=== PATIENT | female | born 1990 | race Caucasian/White ===

== ENCOUNTER 2017-08-14 14:43 | Outpatient (CLI) | payer MEDICAID ==
[~2017-08-14] VITALS: Ht 157.5 cm; Wt 77.3 kg
[2017-08-14 15:15] VITALS: BP 143/71
[2017-08-14] MEDS ORDERED: ACETAMINOPHEN 325 MG TABLET PO ONE (16:00)
[2017-08-14] MEDS ORDERED: LACTATED RINGERS 1,000 ML IVBOLUS ONE (16:00)
[2017-08-14 16:07] LABS: HEMATOCRIT 37.1 % (34.6-47.8); HEMOGLOBIN 12.5 g/dL (11.7-16.4); WHITE BLOOD COUNT 16.4 x10^3/uL (3.4-10)
[2017-08-14 16:13] LABS: DAU SCREEN DISCLAIMER
[2017-08-14 16:19] LABS: ASPARTATE AMINO TRANSFERASE 12 U/L (15-37); BLOOD UREA NITROGEN 4 mg/dL (7-18)
[2017-08-14] MEDS ORDERED: ACETAMINOPHEN 325 MG TABLET ONE (16:50)
[2017-08-14 17:01] LABS: HIV 1&2 ANTIBODY SCREEN Nonreactive (Nonreactive); HIV-1 p24 ANTIGEN Nonreactive (Nonreactive)
[2017-08-14] MEDS ORDERED: FLU VACC QS2017-18 (36MOS+) UP/PF 0.5 ML IM-VACC ONE (17:30)
== END 2017-08-14 19:05 | disposition home or self-care (01) ==
LOC: LDOP 14:43
PROVIDERS: ATTEND Obstetrics & Gynecology
DX: O26.893 Other specified pregnancy related conditions, third trimester (principal); M54.5 Low back pain; R09.81 Nasal congestion; R03.0 Elevated blood-pressure reading, without diagnosis of hypertension; Z3A.38 38 weeks gestation of pregnancy
CPT/HCPCS: 36415; 59025; 76805; 80053; 80307; 81001; 85025; 86140; 86592; 86703; 86762; 86850; 86900; 87077; 87081; 87086; 87186; 87340; 87899; 90686; 96360; 96361; 96372; 99211; J7120; G0435; G0463; G0479

== ENCOUNTER 2017-08-25 03:15 | Outpatient (CLI) | payer MEDICAID ==
[~2017-08-25] VITALS: Ht 152.4 cm; Wt 80.4 kg
[2017-08-25 03:20] VITALS: BP 129/75
[2017-08-25 03:38] LABS: DAU SCREEN DISCLAIMER
== END 2017-08-25 04:15 | disposition home or self-care (01) ==
LOC: LDOP 03:15
PROVIDERS: ATTEND Obstetrics & Gynecology Gynecology
DX: O26.893 Other specified pregnancy related conditions, third trimester (principal); O62.9 Abnormality of forces of labor, unspecified; R10.9 Unspecified abdominal pain; Z3A.39 39 weeks gestation of pregnancy
CPT/HCPCS: 59025; 80307; 81001; 87077; 87086; 87186; 99211; G0463; G0479

== ENCOUNTER 2017-09-05 16:44 | Outpatient (CLI) | payer MEDICAID ==
[~2017-09-05] VITALS: Ht 154.9 cm; Wt 79.5 kg
[2017-09-05 16:57] VITALS: BP 143/83
[2017-09-05 18:08] LABS: MICROSCOPIC INDICATED
[2017-09-05 19:44] LABS: AMPHETAMINE SCREEN, URINE Negative (Negative); BARBITURATE SCREEN, URINE Negative (Negative); BENZODIAZEPINE SCREEN, URINE Negative (Negative); CANNABINOID SCREEN, URINE Positive (Negative); COCAINE SCREEN, URINE Negative (Negative); METHADONE SCREEN, URINE Negative (Negative); OPIATE SCREEN, URINE Negative (Negative)
== END 2017-09-05 19:03 | disposition home or self-care (01) ==
LOC: LDOP 16:44
PROVIDERS: ATTEND Obstetrics & Gynecology
DX: O26.893 Other specified pregnancy related conditions, third trimester (principal); R10.9 Unspecified abdominal pain; O48.0 Post-term pregnancy; Z3A.41 41 weeks gestation of pregnancy
CPT/HCPCS: 36415; 59025; 80307; 81001; 86850; 86900; 99211; G0463; G0479

== ENCOUNTER 2017-09-09 17:22 | Inpatient (IN) | payer MEDICAID ==
[~2017-09-09] VITALS: Ht 152.4 cm; Wt 81.8 kg
[2017-09-09 17:32] VITALS: BP 120/69
[2017-09-09 17:44] VITALS: BP 120/69
[2017-09-09 17:57] VITALS: BP 120/69
[2017-09-09 18:24] LABS: CULTURE INDICATED? YES; MICROSCOPIC INDICATED
[2017-09-09 19:03] LABS: AMPHETAMINE SCREEN, URINE Negative (Negative); BARBITURATE SCREEN, URINE Negative (Negative); BENZODIAZEPINE SCREEN, URINE Negative (Negative); CANNABINOID SCREEN, URINE Positive (Negative); COCAINE SCREEN, URINE Negative (Negative); METHADONE SCREEN, URINE Negative (Negative); OPIATE SCREEN, URINE Negative (Negative)
[2017-09-09] MEDS ORDERED: OXYTOCIN 30U/ 0.9% NaCL 500ML 500 ML IV PRN (19:17)
[2017-09-09] MEDS ORDERED: OXYTOCIN 30U/ 0.9% NaCL 500ML 500 ML IV ONE (19:17)
[2017-09-09] MEDS: D5%-LACTATED RINGERS 1,000 ML IV SCH (19:17)
[2017-09-09] MEDS ORDERED: TERBUTALINE 1 MG/ML, 1ML SQ PRN (19:30)
[2017-09-09] MEDS ORDERED: FENTANYL PF 100 MCG/2ML IV PRN (19:30)
[2017-09-09] MEDS ORDERED: ALUMINUM/MAG/SIMETHICONE 30 ML UDC PO PRN (19:30)
[2017-09-09] MEDS ORDERED: ONDANSETRON 2MG/ML, 2ML IVPush PRN (19:30)
[2017-09-09] MEDS ORDERED: METOCLOPRAMIDE 5 MG/ML, 2ML IVPush PRN (19:30)
[2017-09-09] MEDS ORDERED: CALCIUM CARBONATE 500 MG TAB.CHEW PO PRN (19:30)
[2017-09-09] MEDS ORDERED: TERBUTALINE 1 MG/ML, 1ML IVPush PRN (19:30)
[2017-09-09] MEDS ORDERED: FENTANYL PF 100 MCG/2ML IVPush PRN (19:30)
[2017-09-09] MEDS ORDERED: SODIUM CITRATE/CITRIC ACID 30 ML UDC PO PRN (19:30)
[2017-09-09 19:35] LABS: BASOPHILS # (AUTO) 0.02 x10^3/uL (0-0.1); BASOPHILS % (AUTO) 0 % (0-1); EOSINOPHILS # (AUTO) 0.22 x10^3/uL (0-0.4); EOSINOPHILS % (AUTO) 2 % (1-7); LYMPHOCYTES # (AUTO) 2.33 x10^3/uL (1-3.4); LYMPHOCYTES % (AUTO) 19 % (22-44); MD NO; MEAN CORPUSCULAR HEMOGLOBIN 30.3 pg (27.0-34.8); MEAN CORPUSCULAR HGB CONC 33.7 g/dL (32.4-35.8); MEAN CORPUSCULAR VOLUME 89.9 fL (80-100); MEAN PLATELET VOLUME 10.1 fL (7.4-10.4); MONOCYTES % (AUTO) 8 % (2-9); NEUTROPHILS # (AUTO) 8.62 x10^3/uL (1.8-6.8); NEUTROPHILS % (AUTO) 71 % (42-75); PLATELET COUNT 207 x10^3/uL (130-400)
[2017-09-09 20:14] LABS: HEMOGLOBIN A1C 5.1 % (4.2-6.3)
[2017-09-09] MEDS ORDERED: LIDOCAINE-MPF 2% ,5ML ONE ×2 (20:51→20:53)
[2017-09-09] MEDS ORDERED: FENTANYL/BUPIV./NS/PF 250 ML EPIDCONT ONE ×2 (20:51→20:53)
[2017-09-09] MEDS: LACTATED RINGERS 1,000 ML IV SCH ×2 (21:24→23:58)
[2017-09-09] MEDS ORDERED: FENTANYL/BUPIV./NS/PF 250 ML EPIDCONT SCH (21:24)
[2017-09-09] MEDS ORDERED: EPHEDRINE 50 MG/ML, 1ML IVPush PRN (21:30)
[2017-09-09] MEDS ORDERED: NALOXONE 0.4 MG/ML, 1ML IVPush PRN (21:30)
[2017-09-09] MEDS ORDERED: LACTATED RINGERS 1,000 ML IVBOLUS PRN (21:30)
[2017-09-10] MEDS: LACTATED RINGERS 1,000 ML IV SCH ×5 (03:17→18:19)
[2017-09-10] MEDS: D5%-LACTATED RINGERS 1,000 ML IV SCH ×2 (03:17→11:17)
[2017-09-10] MEDS ORDERED: TERBUTALINE 1 MG/ML, 1ML ONE (07:18)
[2017-09-10] MEDS ORDERED: CEFAZOLIN 1,000 MG ONE (07:22)
[2017-09-10] MEDS ORDERED: SUCCINYLCHOLINE 20 MG/ML, 10ML ONE (07:22)
[2017-09-10] MEDS ORDERED: EPHEDRINE 50 MG/ML, 1ML ONE (07:22)
[2017-09-10] MEDS ORDERED: PROPOFOL 10 MG/ML, 20ML ONE (07:22)
[2017-09-10] MEDS ORDERED: PHENYLEPHRINE 10 MG/ML ONE (07:22)
[2017-09-10] MEDS ORDERED: METOCLOPRAMIDE 5 MG/ML, 2ML ONE (07:22)
[2017-09-10] MEDS: OXYTOCIN 30U/ 0.9% NaCL 500ML 500 ML IV SCH ×2 (08:19→18:19)
[2017-09-10] MEDS ORDERED: LACTATED RINGERS 1,000 ML IV SCH (08:19)
[2017-09-10] MEDS ORDERED: FENTANYL PF 100 MCG/2ML IV PRN (08:30)
[2017-09-10] MEDS ORDERED: hydrALAzine 20 MG/ML, 1ML IV PRN (08:30)
[2017-09-10] MEDS ORDERED: HYDROcodone/APAP 7.5-325MG/15ML UDC PO PRN (08:30)
[2017-09-10] MEDS ORDERED: CALCIUM CARBONATE 500 MG TAB.CHEW PO PRN (08:30)
[2017-09-10] MEDS ORDERED: MIDAZOLAM 1 MG/ML, 2ML IV PRN (08:30)
[2017-09-10] MEDS ORDERED: OXYcodone 5 MG/5 ML ORAL.SOL UDC PO PRN (08:30)
[2017-09-10] MEDS ORDERED: MEPERIDINE/PF 25MG/0.5ML IVPush PRN (08:30)
[2017-09-10] MEDS ORDERED: SIMETHICONE 80 MG CHEW TAB PO PRN (08:30)
[2017-09-10] MEDS ORDERED: EPHEDRINE 50 MG/ML, 1ML IVPush PRN (08:30)
[2017-09-10] MEDS ORDERED: MISOPROSTOL 200 MCG TABLET PR PRN (08:30)
[2017-09-10] MEDS ORDERED: morphine SULFATE 10 MG/ML, 1ML IVPush PRN ×2 (08:30)
[2017-09-10] MEDS ORDERED: OXYcodone IR 5MG TABLET PO PRN (08:30)
[2017-09-10] MEDS ORDERED: BISACODYL 10 MG SUPP PR PRN (08:30)
[2017-09-10] MEDS ORDERED: METHYLERGONOVINE 0.2 MG/ML IM PRN (08:30)
[2017-09-10] MEDS ORDERED: ONDANSETRON 2MG/ML, 2ML IVPush PRN (08:30)
[2017-09-10] MEDS ORDERED: PROMETHAZINE 25 MG/ML, 1ML IV PRN (08:30)
[2017-09-10] MEDS ORDERED: HYDROmorphone 1 MG/ML, 1ML IV PRN (08:30)
[2017-09-10] MEDS ORDERED: ONDANSETRON 2MG/ML, 2ML IV PRN (08:30)
[2017-09-10] MEDS ORDERED: LABETALOL 5MG/ML, 20ML IV PRN (08:30)
[2017-09-10] MEDS: PRENATAL VIT/IRON/FA 1 EACH TABLET PO SCH (09:00)
[2017-09-10] MEDS ORDERED: MISOPROSTOL 200 MCG TABLET ONE (09:49)
[2017-09-10 10:50] VITALS: BP 137/80
[2017-09-10] MEDS: KETOROLAC 30 MG/1 ML IV SCH ×2 (13:13→19:21)
[2017-09-10] MEDS: ACETAMINOPHEN 325 MG TABLET PO SCH ×2 (13:13→19:21)
[2017-09-10] MEDS: OXYcodone IR 5MG TABLET PO PRN ×2 (14:50→19:04)
[2017-09-10 15:00] VITALS: BP 133/84
[2017-09-10 16:06] LABS: MEAN CORPUSCULAR HEMOGLOBIN 30.6 pg (27.0-34.8); MEAN CORPUSCULAR HGB CONC 34.1 g/dL (32.4-35.8); MEAN CORPUSCULAR VOLUME 89.7 fL (80-100); MEAN PLATELET VOLUME 10.1 fL (7.4-10.4); PLATELET COUNT 184 x10^3/uL (130-400); RED BLOOD COUNT 3.78 x10^6/uL (3.82-5.3); RED CELL DISTRIBUTION WIDTH 13.4 % (9.6-15.2)
[2017-09-10 16:07] LABS: MD YES
[2017-09-10 16:39] LABS: <PLATELET ESTIMATE> ADEQUATE; <PLT MORPHOLOGY> NORMAL PLT MORPH; <RBC MORPHOLOGY> NORMAL; BANDS%(MANUAL) 4 % (0-7); LYMPHS% (MANUAL) 8 % (22-44); MONOS#(MANUAL) 1.23 x10^3/uL (0.3-2.7); MONOS% (MANUAL) 7 % (2-9); SEG#(MANUAL) 14.18 x10^3/uL (1.8-6.8); SEGS% (MANUAL) 81 % (42-75)
[2017-09-10] MEDS: DOCUSATE 100 MG CAPSULE PO PRN (19:21)
[2017-09-10 19:30] VITALS: BP 134/81
[2017-09-11 00:20] VITALS: BP 121/80
[2017-09-11] MEDS: OXYcodone IR 5MG TABLET PO PRN ×6 (00:57→21:29)
[2017-09-11] MEDS: ACETAMINOPHEN 325 MG TABLET PO SCH ×5 (00:57→20:39)
[2017-09-11] MEDS: KETOROLAC 30 MG/1 ML IV SCH ×2 (00:57→07:30)
[2017-09-11] MEDS: OXYTOCIN 30U/ 0.9% NaCL 500ML 500 ML IV SCH ×2 (04:19→14:19)
[2017-09-11] MEDS: LACTATED RINGERS 1,000 ML IV SCH ×2 (04:19→14:19)
[2017-09-11 07:25] VITALS: BP 107/59
[2017-09-11] MEDS: PRENATAL VIT/IRON/FA 1 EACH TABLET PO SCH (07:50)
[2017-09-11] MEDS: DOCUSATE 100 MG CAPSULE PO PRN ×2 (07:51→20:40)
[2017-09-11] MEDS: IBUPROFEN 600 MG TABLET PO SCH ×3 (07:51→20:40)
[2017-09-11 19:40] VITALS: BP 109/74
[2017-09-12] MEDS: OXYTOCIN 30U/ 0.9% NaCL 500ML 500 ML IV SCH (00:19)
[2017-09-12] MEDS: LACTATED RINGERS 1,000 ML IV SCH (00:19)
[2017-09-12] MEDS: OXYcodone IR 5MG TABLET PO PRN ×4 (02:20→14:29)
[2017-09-12] MEDS: IBUPROFEN 600 MG TABLET PO SCH ×3 (02:20→14:30)
[2017-09-12] MEDS: ACETAMINOPHEN 325 MG TABLET PO SCH ×2 (02:20→08:27)
[2017-09-12] MEDS ORDERED: DIPH,PERTUSS(ACELL),TET VAC/PF NC IM-VACC ONE ×3 (06:30→14:30)
[2017-09-12 07:30] VITALS: BP 120/78
[2017-09-12] MEDS: DOCUSATE 100 MG CAPSULE PO PRN (08:27)
[2017-09-12] MEDS: PRENATAL VIT/IRON/FA 1 EACH TABLET PO SCH (08:27)
[2017-09-12] MEDS ORDERED: OXYC-302 PO (14:05)
[2017-09-12] MEDS ORDERED: IBUP-1222 PO (14:06)
[2017-09-12] MEDS ORDERED: DOCU-131 PO (14:07)
== END 2017-09-12 15:30 | disposition home or self-care (01) | DRG 766 ==
LOC: LDOP 17:22 → 2NE 19:36 → LDIP 19:38 → 2NW 09-10 10:50
PROVIDERS: ADMIT Student in an Organized Health Care Education/Training Program; ATTEND Student in an Organized Health Care Education/Training Program
PROC: 10D00Z1 Extraction of Products of Conception, Low, Open Approach (ICD-10-PCS; principal; 2017-09-10)
DX: O48.0 Post-term pregnancy (principal); O76 Abnormality in fetal heart rate and rhythm complicating labor and delivery; Z37.0 Single live birth; Z3A.41 41 weeks gestation of pregnancy
CPT/HCPCS: 36415; 80307; 81001; 82803; 83036; 85025; 86850; 86900; 87086; 90715; J0690; J1100; J1885; J2405; J2704; J3010; J3490; G0479; J0330; J2270; J2370; J2590; J2765; J7120